=== PATIENT | female | born 1965 | race Caucasian/White ===

== ENCOUNTER 2017-11-11 10:00 | Day surgery (SDC) | payer MEDICARE, MEDICAID ==
[2017-11-11] VITALS (11 sets, daily range): BP systolic 109–138; BP diastolic 47–68
[~2017-11-11] VITALS: Ht 162.6 cm; Wt 84.9 kg
[~2017-11-11 10:00] MED LIST: ASPI-611 PO; BACL10TA PO; CARV3.122 PO; CYAN250010 PO; DOCU100C40 PO; FLUT1DIS4 INH; FURO20TA4 PO; INSU100V36 SQ; LANTUS SQ; LISI-604 PO; OMEP40CA37 PO; POTA10TA15 PO; SIMV20TA5 PO
[2017-11-11] MEDS ORDERED: glucagon, human recombinant 1mg kit SUBCUT PRN (10:20)
[2017-11-11] MEDS ORDERED: dextrose 50%-water 50ml dispensing syringe IV PRN ×2 (10:20)
[2017-11-11] MEDS ORDERED: MESSAGE TO PHARMACY PO ONE (10:20)
[2017-11-11] MEDS ORDERED: normal saline 1000ml 1,000 ML IV SCH (10:20)
[2017-11-11] MEDS ORDERED: dextrose ORAL solution 15 GM/59 ML bottle PO PRN (10:20)
[2017-11-11] MEDS ORDERED: LORazepam 0.5 MG tablet PO PRN (10:20)
[2017-11-11] MEDS ORDERED: nitroGLYCERIN 0.4mg SUBLingual tab SL PRN (10:20)
[2017-11-11] MEDS ORDERED: insulin Lispro (HumaLOG) vial - multi-dose SQ SCH (10:20)
[2017-11-11] MEDS ORDERED: diphenhydrAMINE 25mg capsule PO PRN (10:20)
[2017-11-11 11:39] LABS: BASOPHILS # (AUTO) 0.1 X10'3 (0-0.2); BASOPHILS % (AUTO) 1.2 % (0-1); EOSINOPHILS # (AUTO) 0.2 X10'3 (0-0.9); EOSINOPHILS % (AUTO) 2.7 % (0-6); HEMATOCRIT 41.9 % (35.0-45.0); HEMOGLOBIN 14.6 g/dl (12.0-16.0); LYMPHOCYTES # (AUTO) 2.8 X10'3 (1.1-4.8); LYMPHOCYTES % (AUTO) 31.4 % (21-51); MEAN CORPUSCULAR HEMOGLOBIN 30.8 PG (27.0-31.0); MEAN CORPUSCULAR HGB CONC 34.7 % (33.0-36.5); MEAN CORPUSCULAR VOLUME 88.8 FL (78-98); MEAN PLATELET VOLUME 8.9 FL (7.4-10.4); MONOCYTES # (AUTO) 0.5 X10'3 (0-0.9); MONOCYTES % (AUTO) 5.5 % (2-12); NEUTROPHILS # (AUTO) 5.3 X10'3 (1.8-7.7); NEUTROPHILS % (AUTO) 59.2 % (42-75); PLATELET COUNT 164 X10'3 (140-440); RED BLOOD COUNT 4.72 X10'6 (4.20-5.60); RED CELL DISTRIBUTION WIDTH 16.1 % (11.5-14.5); WHITE BLOOD COUNT 8.9 X10'3 (4.5-11.0)
[2017-11-11] MEDS ORDERED: fentaNYL/PF 50MCG/1 ML 2ML syringe ONE (11:57)
[2017-11-11] MEDS ORDERED: midazolam 2 mg/2 ml injection ONE (11:57)
[2017-11-11] MEDS ORDERED: iohexol 350MG/ML 100ml bottle IV ONE (11:58)
[2017-11-11] MEDS ORDERED: LIDOcaine 1%/PF (10mg/ml) 5ml vial ONE (11:58)
[2017-11-11] MEDS ORDERED: iohexol 350 MG/ML 50ML vial IV ONE (11:58)
[2017-11-11 12:16] LABS: ALBUMIN 3.2 G/DL (3.4-5.0); ANION GAP 12 (8-16); BLOOD UREA NITROGEN 16 MG/DL (7-18); BUN/CREATININE RATIO 21.1 (6.6-38.0); CALCIUM 8.8 MG/DL (8.5-10.1); CHLORIDE 105 MMOL/L (99-107); CREATININE 0.76 MG/DL (0.40-0.90); GLUCOSE 299 MG/DL (70-104); PARTIAL THROMBOPLASTIN TIME 23 SECONDS (22-32); POTASSIUM 4.2 MMOL/L (3.5-5.1); PROTHROMBIN TIME 9.9 SECONDS (9.0-12.0); SODIUM 141 MMOL/L (135-145); TOTAL CARBON DIOXIDE 23.9 MMOL/L (24-32); eGFR 80 ML/MIN
[2017-11-11] MEDS ORDERED: HYDROcodone/acetaminophen 5mg/325mg tablet PO PRN (13:45)
[2017-11-11] MEDS ORDERED: acetaminophen 325mg tablet PO PRN (13:45)
[2017-11-11] MEDS ORDERED: HYDROcodone/acetaminophen 10/325mg tab PO PRN (13:45)
[2017-11-11] MEDS ORDERED: OXAZEpam 15mg capsule PO PRN (13:45)
[2017-11-11] MEDS ORDERED: proCHLORperazine 10 MG/2 ml inj IV PRN (13:45)
[2017-11-11] MEDS ORDERED: ondansetron/PF 4mg/2ml inj IV PRN (13:45)
[2017-11-11] MEDS ORDERED: insulin glargine (Lantus) pen - multi-dose SQ SCH (21:00)
== END 2017-11-11 18:55 | disposition home or self-care (01) ==
LOC: SSTAY O 10:00
PROVIDERS: ATTEND Internal Medicine Cardiovascular Disease
DX: I25.10 Atherosclerotic heart disease of native coronary artery without angina pectoris (principal); Z88.1 Allergy status to other antibiotic agents; I50.23 Acute on chronic systolic (congestive) heart failure; K21.9 Gastro-esophageal reflux disease without esophagitis; Z79.01 Long term (current) use of anticoagulants; E11.9 Type 2 diabetes mellitus without complications; Z79.4 Long term (current) use of insulin; I25.2 Old myocardial infarction; E78.00 Pure hypercholesterolemia, unspecified; Z98.51 Tubal ligation status; F17.210 Nicotine dependence, cigarettes, uncomplicated; Z95.1 Presence of aortocoronary bypass graft
CPT/HCPCS: 36415; 71046; 80048; 82948; 83036; 85025; 85610; 85730; 93459; A6257; C1769; J1644; J2001; J2250; J3010; J7030; Q0163; Q9967; 99152; 99153; A4620; J1815

== ENCOUNTER 2017-12-09 07:48 | Day surgery (SDC) | payer MEDICARE, MEDICAID ==
[2017-12-07 15:14] LABS: BASOPHILS # (AUTO) 0.1 X10'3 (0-0.2); BASOPHILS % (AUTO) 0.8 % (0-1); EOSINOPHILS # (AUTO) 0.2 X10'3 (0-0.9); EOSINOPHILS % (AUTO) 2.5 % (0-6); LYMPHOCYTES # (AUTO) 2.9 X10'3 (1.1-4.8); LYMPHOCYTES % (AUTO) 35.8 % (21-51); MEAN CORPUSCULAR HEMOGLOBIN 30.7 PG (27.0-31.0); MEAN CORPUSCULAR HGB CONC 34.7 % (33.0-36.5); MEAN CORPUSCULAR VOLUME 88.3 FL (78-98); MEAN PLATELET VOLUME 9.3 FL (7.4-10.4); MONOCYTES # (AUTO) 0.5 X10'3 (0-0.9); MONOCYTES % (AUTO) 6.5 % (2-12); NEUTROPHILS # (AUTO) 4.4 X10'3 (1.8-7.7); NEUTROPHILS % (AUTO) 54.4 % (42-75); PRE OP HEMATOCRIT 42.9 % (35.0-45.0); PRE OP HEMOGLOBIN 14.9 g/dL (12.0-16.0); PRE OP PLATELET COUNT 214 X10'3 (140-440); RED BLOOD COUNT 4.86 X10'6 (4.20-5.60); RED CELL DISTRIBUTION WIDTH 15.2 % (11.5-14.5)
[2017-12-07 15:15] LABS: CLARITY,URINE Cloudy (Clear); COLOR,URINE Yellow (Yellow); GLUCOSE, URINE >=1000 mg/dl (Neg); KETONES,URINE Negative (Neg); LEUKOCYTE ESTERASE ,URINE Moderate (Neg); NITRITES, URINE Positive (Neg); OCCULT BLOOD,URINE Trace (Neg); PROTEIN,URINE Negative (Neg); UROBILINOGEN,URINE 0.2 E.U/dL (0.2-1.0)
[2017-12-07 15:16] LABS: UA COLLECTION TYPE NON-SPECIFIED
[2017-12-07 15:24] LABS: PRE OP INR 0.9 INR; PRE OP PROTIME 9.6 SECONDS (9.0-12.0)
[2017-12-07 15:30] LABS: HCG SERUM QL NEGATIVE
[2017-12-07 15:32] LABS: HEMOGLOBIN A1C 11.5 % (4.5-6.2)
[2017-12-07 15:34] LABS: ALBUMIN 3.2 G/DL (3.4-5.0); ALBUMIN/GLOBULIN RATIO 0.8 (1.1-1.5); ALKALINE PHOSPHATASE 90 IU/L (46-116); BLOOD UREA NITROGEN 18 MG/DL (7-18); CALCIUM 8.6 MG/DL (8.5-10.1); CHLORIDE 99 MMOL/L (99-107); PRE OP ALT 47 U/L (30-65); PRE OP ANION GAP 14 (8-16); PRE OP AST 18 U/L (10-37); PRE OP BILIRUB, TOTAL 0.5 MG/DL (0.0-1.0); PRE OP POTASSIUM 4.1 MMOL/L (3.4-5.1); PRE OP SODIUM 135 MMOL/L (135-145); TOTAL CARBON DIOXIDE 22.5 MMOL/L (24-32); TOTAL PROTEIN 7.4 G/DL (6.4-8.2); eGFR 47 ML/MIN
[2017-12-07 15:36] LABS: PRE OP GLUCOSE 494 MG/DL (70-104)
[2017-12-07 15:36] LABS: BACTERIA,URINE 4+ /HPF (Neg); RBC,URINE 0-2 /HPF (0-2); SQUAMOUS EPITHELIAL CELL,UR MANY /LPF (FEW); WBC,URINE 50-100 /HPF (0-4)
[2017-12-07 15:37] LABS: MUCUS STRANDS MODERATE /LPF (Neg)
[2017-12-07 15:38] LABS: WBC CLUMPS,URINE FEW /HPF (NEGATIVE)
[2017-12-09] VITALS (21 sets, daily range): BP systolic 88–150; BP diastolic 45–99
[~2017-12-09] VITALS: Ht 162.6 cm; Wt 83.4 kg
[~2017-12-09 07:48] MED LIST changes: +DOCUMENT DATE & TIME OF BETA-BLOCKER PO ONE; +albuterol 2.5 MG/3 ML nebule NEB ONE; +ceFOXitin inj 1,000 MG in normal saline 100ml IV soln 100 ML IV ONE; +famotidine 20mg tablet PO ONE
[2017-12-09] MEDS ORDERED: LIDOcaine 1% (10mg/ml) 2ml vial ONE (08:28)
[2017-12-09] MEDS: ringers solution, lacted 1,000 ML IV SCH ×2 (08:42→14:38)
[2017-12-09] MEDS ORDERED: fentaNYL /PF 50mcg/ml 5ml ampule ONE (08:56)
[2017-12-09] MEDS ORDERED: rocuronium 10mg/ml inj IV ONE (08:57)
[2017-12-09] MEDS ORDERED: propofol inj 20 ML IV ONE (08:57)
[2017-12-09] MEDS ORDERED: neomy sulf/polymyxin B sulf. GU irrigation 1ml amp IR ONE (09:36)
[2017-12-09] MEDS ORDERED: epiNEPHrine 1 mg/ml inj ONE (09:36)
[2017-12-09] MEDS ORDERED: vasoPRESSIN 20 units/ml inj. ONE (09:36)
[2017-12-09] MEDS ORDERED: midazolam 2 mg/2 ml injection ONE (09:43)
[2017-12-09] MEDS ORDERED: LIDOcaine 2% (20mg/ml) 5ml vial ONE ×3 (10:00→12:37)
[2017-12-09] MEDS ORDERED: insulin regular, human 10 units/0.1 ml syringe SQ ONE ×2 (10:00→12:35)
[2017-12-09] MEDS ORDERED: ringers solution, lacted 1,000 ML IV SCH (10:53)
[2017-12-09] MEDS: BUPIVAcaine/PF 2.5 mg/ml (0.25%) 30ml vial ONE ×2 (10:54→10:55)
[2017-12-09] MEDS ORDERED: ondansetron/PF 4mg/2ml inj IV PRN ×2 (10:55→12:00)
[2017-12-09] MEDS ORDERED: acetaminophen 1,000mg/100ml IV 100 ML IV PRN (10:55)
[2017-12-09] MEDS ORDERED: fentaNYL/PF 50MCG/1 ML 2ML syringe IV PRN ×2 (10:55)
[2017-12-09] MEDS ORDERED: ketorolac trometh. 30mg/ml inj. IV ONE (10:55)
[2017-12-09] MEDS ORDERED: neostigmine methylsulfate 1 MG/ML 10ml vial ONE (11:35)
[2017-12-09] MEDS ORDERED: glycopyrrolate 0.2mg/ml inj ONE (11:35)
[2017-12-09] MEDS ORDERED: metoclopramide 5 mg/ml inj ONE (11:37)
[2017-12-09] MEDS ORDERED: fentaNYL/PF 50MCG/1 ML 2ML syringe ONE (11:57)
[2017-12-09] MEDS ORDERED: ketorolac trometh. 30mg/ml inj. ONE (11:58)
[2017-12-09] MEDS ORDERED: albuterol 2.5 MG/3 ML nebule NEB PRN (12:00)
[2017-12-09] MEDS ORDERED: mag hydrox/Alum hydrox/simeth 30ml oral suspension PO PRN (12:00)
[2017-12-09] MEDS ORDERED: metoclopramide 5 mg/ml inj IV PRN (12:00)
[2017-12-09] MEDS ORDERED: normal saline 500ml IV soln 500 ML IV PRN (12:00)
[2017-12-09] MEDS ORDERED: temazepam 15mg capsule PO PRN (12:00)
[2017-12-09] MEDS ORDERED: HYDROcodone/acetaminophen 10/325mg tab PO PRN (12:00)
[2017-12-09] MEDS ORDERED: diphenhydrAMINE 50 mg/ml inj IV PRN (12:00)
[2017-12-09] MEDS ORDERED: ketorolac trometh. 30mg/ml inj. IV PRN (12:00)
[2017-12-09] MEDS ORDERED: LORazepam 2 mg/ml vial IV PRN (12:00)
[2017-12-09] MEDS: baclofen 10mg tablet PO SCH ×2 (13:00→20:38)
[2017-12-09] MEDS: simethicone 80mg chew tab PO SCH ×2 (13:00→17:46)
[2017-12-09] MEDS ORDERED: albuterol 2.5 MG/3 ML nebule NEB ONE (13:10)
[2017-12-09] MEDS: meperidine/PF 50mg/ml syringe IV PRN ×2 (13:14→13:23)
[2017-12-09] MEDS ORDERED: CADD PCA waste documentation MC PRN (13:35)
[2017-12-09] MEDS ORDERED: naloxone 0.4 mg/ml inj IV PRN (13:35)
[2017-12-09] MEDS: HYDROmorphone/NS 1 mg/ml CADD 50 ML IV SCH ×5 (13:57→23:00)
[2017-12-09] MEDS ORDERED: insulin Lispro (HumaLOG) vial - multi-dose SQ SCH (18:10)
[2017-12-09] MEDS ORDERED: dextrose 50%-water 50ml dispensing syringe IV PRN ×2 (18:10)
[2017-12-09] MEDS ORDERED: glucagon, human recombinant 1mg kit SUBCUT PRN (18:10)
[2017-12-09] MEDS ORDERED: dextrose ORAL solution 15 GM/59 ML bottle PO PRN ×2 (18:10)
[2017-12-09] MEDS ORDERED: MESSAGE TO PHARMACY PO ONE (18:10)
[2017-12-09] MEDS: carVEDilol 3.125mg tablet PO SCH (20:38)
[2017-12-09] MEDS: docusate sod 100mg capsule PO SCH (20:38)
[2017-12-09] MEDS: furosemide 20MG tablet PO SCH (20:38)
[2017-12-09] MEDS ORDERED: insulin glargine (Lantus) pen - multi-dose SQ SCH ×2 (21:00)
[2017-12-10] VITALS: BP 109/49
[2017-12-10] MEDS: HYDROmorphone/NS 1 mg/ml CADD 50 ML IV SCH ×6 (00:59→11:00)
[2017-12-10 04:00] VITALS: BP 113/52
[2017-12-10] MEDS: ringers solution, lacted 1,000 ML IV SCH ×2 (04:30→11:47)
[2017-12-10 05:25] LABS: BASOPHILS % (AUTO) 0.3 % (0-1); EOSINOPHILS # (AUTO) 0.2 X10'3 (0-0.9); EOSINOPHILS % (AUTO) 1.6 % (0-6); HEMATOCRIT 36.8 % (35.0-45.0); HEMOGLOBIN 12.8 g/dl (12.0-16.0); LYMPHOCYTES # (AUTO) 2.3 X10'3 (1.1-4.8); LYMPHOCYTES % (AUTO) 20.6 % (21-51); MEAN CORPUSCULAR HGB CONC 34.7 % (33.0-36.5); MEAN CORPUSCULAR VOLUME 89.5 FL (78-98); MEAN PLATELET VOLUME 8.5 FL (7.4-10.4); MONOCYTES # (AUTO) 0.8 X10'3 (0-0.9); MONOCYTES % (AUTO) 7.2 % (2-12); NEUTROPHILS # (AUTO) 7.9 X10'3 (1.8-7.7); NEUTROPHILS % (AUTO) 70.3 % (42-75); PLATELET COUNT 161 X10'3 (140-440); RED BLOOD COUNT 4.11 X10'6 (4.20-5.60); RED CELL DISTRIBUTION WIDTH 15.3 % (11.5-14.5); WHITE BLOOD COUNT 11.3 X10'3 (4.5-11.0)
[2017-12-10 06:02] LABS: ALANINE AMINOTRANSFERASE 44 U/L (12-78); ALBUMIN 2.7 G/DL (3.4-5.0); ALBUMIN/GLOBULIN RATIO 0.8 (1.1-1.5); ALKALINE PHOSPHATASE 71 IU/L (46-116); ANION GAP 10 (8-16); ASPARTATE AMINO TRANSFERASE 25 U/L (10-37); BILIRUBIN,TOTAL 0.8 MG/DL (0.1-1.0); BLOOD UREA NITROGEN 18 MG/DL (7-18); BUN/CREATININE RATIO 26.1 (6.6-38.0); CALCIUM 8.2 MG/DL (8.5-10.1); CHLORIDE 105 MMOL/L (99-107); CREATININE 0.69 MG/DL (0.40-0.90); GLUCOSE 213 MG/DL (70-104); POTASSIUM 3.8 MMOL/L (3.5-5.1); SODIUM 141 MMOL/L (135-145); TOTAL CARBON DIOXIDE 25.7 MMOL/L (24-32); TOTAL PROTEIN 6.3 G/DL (6.4-8.2); eGFR 89 ML/MIN
[2017-12-10 07:25] VITALS: BP 112/54
[2017-12-10] MEDS: simethicone 80mg chew tab PO SCH (07:44)
[2017-12-10] MEDS: docusate sod 100mg capsule PO SCH (07:45)
[2017-12-10] MEDS: furosemide 20MG tablet PO SCH (07:45)
[2017-12-10] MEDS: carVEDilol 3.125mg tablet PO SCH (07:45)
[2017-12-10] MEDS: baclofen 10mg tablet PO SCH (07:45)
[2017-12-10] MEDS ORDERED: potassium chloride 10mEq ER tablet PO SCH (08:00)
[2017-12-10] MEDS ORDERED: enoxaparin 40mg/0.4ml syringe SQ SCH (08:00)
[2017-12-10] MEDS ORDERED: lisinopril 5mg tablet PO SCH (08:00)
[2017-12-10] MEDS ORDERED: pantoprazole 40mg Tablet.DR PO SCH (08:00)
[2017-12-10 12:06] VITALS: BP 135/59
== END 2017-12-10 12:30 | disposition home or self-care (01) ==
LOC: PAS 07:48 → SUR 3N 11:58 → PAS 12-10 12:30
PROVIDERS: ATTEND Obstetrics & Gynecology Obstetrics
DX: D06.9 Carcinoma in situ of cervix, unspecified (principal); N80.0 Endometriosis of uterus; N88.8 Other specified noninflammatory disorders of cervix uteri; N73.6 Female pelvic peritoneal adhesions (postinfective); E11.9 Type 2 diabetes mellitus without complications; G43.909 Migraine, unspecified, not intractable, without status migrainosus; E78.4 Other hyperlipidemia; I11.0 Hypertensive heart disease with heart failure; I50.9 Heart failure, unspecified; J44.9 Chronic obstructive pulmonary disease, unspecified; E66.9 Obesity, unspecified; F17.210 Nicotine dependence, cigarettes, uncomplicated; Z72.89 Other problems related to lifestyle; Z95.1 Presence of aortocoronary bypass graft; I25.2 Old myocardial infarction; I25.10 Atherosclerotic heart disease of native coronary artery without angina pectoris; Z98.51 Tubal ligation status; Z68.31 Body mass index [BMI] 31.0-31.9, adult; Z98.2 Presence of cerebrospinal fluid drainage device; Z79.1 Long term (current) use of non-steroidal anti-inflammatories (NSAID); Z79.4 Long term (current) use of insulin; Z79.891 Long term (current) use of opiate analgesic; Z88.1 Allergy status to other antibiotic agents; Z88.8 Allergy status to other drugs, medicaments and biological substances; Z79.899 Other long term (current) drug therapy; Z98.890 Other specified postprocedural states
CPT/HCPCS: 36415; 58552; 80053; 81001; 82948; 83036; 84703; 85025; 85610; 85730; 86885; 86900; 86901; 87070; 93005; 94640; 94760; A4315; J0131; J0171; J0694; J1170; J1650; J1815; J1885; J2001; J2175; J2250; J2704; J2710; J2765; J3010; J3490; J7030; J7120; 88309; A7000

== ENCOUNTER 2019-05-24 21:37 | Emergency (ER) | payer MEDICARE, MEDICAID ==
[~2019-05-24] VITALS: Ht 162.6 cm; Wt 86.4 kg
[~2019-05-24 21:37] MED LIST changes: -DOCUMENT DATE & TIME OF BETA-BLOCKER PO ONE; +OMEP40CA13 PO; -OMEP40CA37 PO; -albuterol 2.5 MG/3 ML nebule NEB ONE; -ceFOXitin inj 1,000 MG in normal saline 100ml IV soln 100 ML IV ONE; -famotidine 20mg tablet PO ONE
[2019-05-24] MEDS ORDERED: TETanus/Pertussis (Acell)/Diphther VAC/PF (Tdap-Adult) 0.5ml syringe IM ONE (22:55)
[2019-05-24] MEDS ORDERED: ondansetron/PF 4mg/2ml inj IV ONE (22:55)
[2019-05-24] MEDS ORDERED: CefTRIAXone 2gm/D5W 50ml 50 ML IV ONE (22:55)
[2019-05-24] MEDS ORDERED: vancomycin/NS 1 GM ADD-VANTAGE 250 ML IV ONE (22:55)
[2019-05-24] MEDS ORDERED: SULF1TAB49 PO (22:57)
[2019-05-24] MEDS ORDERED: CEPH-572 PO (22:57)
[2019-05-24] MEDS ORDERED: ONDA4TAB6 PO (22:58)
[2019-05-24] MEDS ORDERED: morphine 4 MG/ML inj SYRINge IV ONE (23:10)
--- NOTE | 2019-05-24 23:18 | NUR ---
IV and antibiotics started. Patient complains of increasing pain. Order for 4mg morphine IV obtained from Dr. Long and given to the patient. Patient also requests a pillow for comfort which is also provided. Lights dimmed and call joiner instructions provided to patient.
[2019-05-25 00:50] VITALS: BP 150/83
== END 2019-05-25 00:52 | disposition home or self-care (01) ==
LOC: ER 21:37
DX: L02.411 Cutaneous abscess of right axilla (principal); L03.113 Cellulitis of right upper limb; I25.10 Atherosclerotic heart disease of native coronary artery without angina pectoris; I50.9 Heart failure, unspecified; E78.00 Pure hypercholesterolemia, unspecified; I25.2 Old myocardial infarction; E11.9 Type 2 diabetes mellitus without complications; Z95.1 Presence of aortocoronary bypass graft; Z88.1 Allergy status to other antibiotic agents; Z79.899 Other long term (current) drug therapy; Z79.82 Long term (current) use of aspirin; Z79.2 Long term (current) use of antibiotics; Z79.4 Long term (current) use of insulin
CPT/HCPCS: 96365; 96366; 96375; 99283; J0696; J2270; J2405; J3370

== ENCOUNTER 2019-10-12 09:16 | Outpatient (CLI) | payer MEDICARE, MEDICAID ==
[~2019-10-12 09:16] MED LIST changes: +ONDA4TAB6 PO; +SIMV-42 PO; -SIMV20TA5 PO
== END 2019-10-12 23:59 | disposition home or self-care (01) ==
LOC: 64 CT 09:16
PROVIDERS: ATTEND Nurse Practitioner Family
DX: G44.52 New daily persistent headache (NDPH) (principal)
CPT/HCPCS: 70450

== ENCOUNTER 2019-10-25 16:40 | Emergency (ER) | payer MEDICARE, MEDICAID ==
[~2019-10-25] VITALS: Ht 162.6 cm; Wt 82.0 kg
[2019-10-25 17:08] VITALS: BP 112/44
[2019-10-25] MEDS ORDERED: ipratropium/albuterol 3ml nebule NEB ONE (17:55)
[2019-10-25] MEDS ORDERED: AZIT250T PO (17:58)
[2019-10-25] MEDS ORDERED: BENZ-16 PO (17:58)
[2019-10-25] MEDS ORDERED: ONDA4TAB6 PO (17:58)
== END 2019-10-25 19:02 | disposition home or self-care (01) ==
LOC: ER 16:41
DX: J06.9 Acute upper respiratory infection, unspecified (principal); I25.10 Atherosclerotic heart disease of native coronary artery without angina pectoris; I50.9 Heart failure, unspecified; E78.00 Pure hypercholesterolemia, unspecified; I25.2 Old myocardial infarction; E11.9 Type 2 diabetes mellitus without complications; F17.200 Nicotine dependence, unspecified, uncomplicated; Z95.1 Presence of aortocoronary bypass graft; Z88.1 Allergy status to other antibiotic agents; Z79.82 Long term (current) use of aspirin; Z79.4 Long term (current) use of insulin; Z79.899 Other long term (current) drug therapy
CPT/HCPCS: 71046; 94640; 94760; 99283

== ENCOUNTER 2020-12-08 16:25 | Emergency (ER) | payer MEDICARE, MEDICAID ==
[~2020-12-08] VITALS: Ht 162.6 cm; Wt 79.2 kg
[~2020-12-08 16:25] MED LIST changes: +AZIT250T PO; +BENZ-16 PO; -LISI-604 PO; +LISI-790 PO
[2020-12-08 16:33] VITALS: BP 115/51
[2020-12-08] MEDS ORDERED: acetaminophen 325mg tablet PO ONE (17:15)
[2020-12-08] MEDS ORDERED: ketorolac tromethamine 15mg/ml inj. IM ONE (17:15)
[2020-12-08] MEDS ORDERED: morphine 4 MG/ML inj SYRINge IM ONE (17:15)
[2020-12-08] MEDS ORDERED: LIDOcaine 1% 30ml preserv. free vial IJ ONE (17:15)
[2020-12-08] MEDS ORDERED: DOXY100C43 PO (17:25)
[2020-12-08] MEDS ORDERED: ONDA4TAB6 PO (17:25)
--- NOTE | 2020-12-08 18:39 | NUR ---
OLINDA Bautista bedside for I&D of abscess. Large amount of purulent drainage expressed. Patient tolerated procedure well. Gauze dressing placed. Home care discussed w/patient.
== END 2020-12-08 19:15 | disposition home or self-care (01) ==
LOC: ER 16:26
DX: L02.413 Cutaneous abscess of right upper limb (principal); M75.01 Adhesive capsulitis of right shoulder; I25.10 Atherosclerotic heart disease of native coronary artery without angina pectoris; I50.9 Heart failure, unspecified; E78.00 Pure hypercholesterolemia, unspecified; I25.2 Old myocardial infarction; E11.9 Type 2 diabetes mellitus without complications; Z95.5 Presence of coronary angioplasty implant and graft; Z79.82 Long term (current) use of aspirin; Z79.1 Long term (current) use of non-steroidal anti-inflammatories (NSAID); Z79.2 Long term (current) use of antibiotics; Z79.4 Long term (current) use of insulin; Z79.899 Other long term (current) drug therapy; Z88.1 Allergy status to other antibiotic agents
CPT/HCPCS: 10060; 96372; 99284; J1885; J2270